=== PATIENT | male | born 1955 | race Two or more races ===

== ENCOUNTER → 2016-09-25 | Day surgery (SDC) | payer OTHER ==
--- NOTE | 2016-09-26 15:22 | PATH ---
Cytology Non-Gynecological Report Patient Name: ANKIT JIMENEZ [facility]. Rec. #: [id number] /Age/Gender: 1955 (Age: 61) / M Account: [id number] Location: RADIOLOGY Taken: 09/25/2016 Received: 09/25/2016 Reported: 09/26/2016 Physicians: Pancho Whalen M.D. Specimen(s) Received LEFT THYROID FNA Clinical History Left thyroid nodule, 1.42 x 0.78 x 1.25 cm Final Diagnosis THYROID GLAND, LEFT LOBE, US GUIDED FINE NEEDLE ASPIRATION BIOPSY: SATISFACTORY FOR EVALUATION. NO MALIGNANT CELLS IDENTIFIED. CONSISTENT WITH NODULAR HYPERPLASIA (BENIGN FOLLICULAR NODULE, [place] CATEGORY II, BENIGN), SEE COMMENT. Comment: The smears and the cell block from clusters of bland appearing follicular epithelial cells arranged in mixed macro- and microfollicules and flat sheets. Colloid is present. Electronically Signed Michael Varma M.D. Gross Description Received are four air dried smears, four smears in 95% alcohol, and 20 cc of bloody fluid in formalin. Four diff-quik stained slides, four Pap stained slides and one cell block are made.
== END | disposition home or self-care (01) ==
LOC: JRADIR 10:05
PROVIDERS: ATTEND Internal Medicine Endocrinology, Diabetes & Metabolism
PROC: 0GBG3ZX Excision of Left Thyroid Gland Lobe, Percutaneous Approach, Diagnostic (ICD-10-PCS; principal; 2016-09-25)
PROC: BG44ZZZ Ultrasonography of Thyroid Gland (ICD-10-PCS; 2016-09-25)
DX: E04.1 Nontoxic single thyroid nodule (principal)
CPT/HCPCS: 76942; 88173; 88305-TC

== ENCOUNTER → 2016-10-09 | Day surgery (SDC) | payer OTHER ==
--- NOTE | 2016-10-11 09:09 | PATH ---
Cytology Non-Gynecological Report Patient Name: ANKIT JIMENEZ [facility]. Rec. #: [id number] /Age/Gender: 1955 (Age: 61) / M Account: [id number] Location: RADIOLOGY Taken: 10/09/2016 Received: 10/09/2016 Reported: 10/11/2016 Physicians: Pancho Whalen M.D. Specimen(s) Received RIGHT THYROID FNA Clinical History Right thyroid nodule, 0.80 x 0.57 x 0.69 cm Final Diagnosis THYROID GLAND, RIGHT LOBE, US GUIDED FINE NEEDLE ASPIRATION BIOPSY: SATISFACTORY FOR EVALUATION DUE TO THE PRESENCE OF COLLOID; NO FOLLICULAR EPITHELIAL CELLS PRESENT. THIN COLLOID PRESENT (SEE COMMENT). Comment: The aspirate shows thin colloid only. 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 Imaging correlations and followup are suggested. Electronically Signed Michael Varma M.D. Gross Description Received are one air dried smears, one smears in 95% alcohol, and 50 cc of bloody fluid in formalin. One diff-quik stained slide, one Pap stained slide and one cell block are made. __
== END | disposition home or self-care (01) ==
LOC: JRADIR 08:55
PROVIDERS: ATTEND Internal Medicine Endocrinology, Diabetes & Metabolism
PROC: 0GBH3ZX Excision of Right Thyroid Gland Lobe, Percutaneous Approach, Diagnostic (ICD-10-PCS; principal; 2016-10-09)
PROC: BG44ZZZ Ultrasonography of Thyroid Gland (ICD-10-PCS; 2016-10-09)
DX: E04.1 Nontoxic single thyroid nodule (principal)
CPT/HCPCS: 76942; 88173; 88305-TC

== ENCOUNTER 2023-05-21 04:21 | Inpatient (IN) | payer OTHER ==
[2023-05-15 13:33] VITALS: BMI 27.4
[2023-05-21] MEDS: cefOXitin SODIUM 2 GM VIAL (RESTRICTED TO ID) IVPB ONE (14:10)
[2023-05-21] MEDS: BUPIVACAINE HCL/PF 0.25% (2.5MG/ML) 10 ML VIAL IJ ONE ×2 (15:28)
[2023-05-21] MEDS ORDERED: SUGAMMADEX SODIUM 200 MG/2 ML VIAL ONE (17:42)
[2023-05-21] MEDS ORDERED: ONDANSETRON 4 MG/2 ML VIAL IVPUSH PRN ×2 (18:00→18:37)
[2023-05-21] MEDS ORDERED: IBUPROFEN 800 MG/8 ML IJ IVPB PRN (18:37)
[2023-05-21] MEDS ORDERED: oxyCODONE HCL 5 MG TABLET PO PRN (18:37)
[2023-05-21] MEDS ORDERED: HYDROmorphone HCl 2 MG/ML VIAL IVPB PRN (18:37)
[2023-05-21] MEDS ORDERED: ACETAMINOPHEN INJECTION 100 ML IVPB ONE (20:57)
[2023-05-21] MEDS: LACTATED RINGERS SOLUTION 1,000 ML/1,000 ML INFUS.BAG IV SCH (21:00)
[2023-05-21] MEDS: ACETAMINOPHEN 1000 MG/100 ML BAG IVPB SCH (21:05)
[2023-05-21] MEDS ORDERED: ceFAZolin SODIUM 1 GM VIAL ONE (21:49)
[2023-05-21] MEDS: CEFAZOLIN 1 GM/D5W 1 GM/50 ML BAG IVPB SCH (21:53)
[2023-05-22] MEDS: CEFAZOLIN 1 GM in DEXTROSE 5%-WATER - 50 ML IVPB SCH (02:28)
[2023-05-22] MEDS: METOCLOPRAMIDE HCL INJECTION 10 MG/2 ML VIAL IVPUSH SCH ×2 (07:46→15:19)
[2023-05-22] MEDS: ONDANSETRON 4 MG/2 ML VIAL IVPUSH SCH (07:47)
[2023-05-22 09:42] LABS: HEMATOCRIT 34.3 % (35.4-49); HEMOGLOBIN 10.4 GM/dL (11.7-16.9); MCH 22.7 pg (25.7-33.7); MCHC 30.4 g/dl (32.0-35.9); MEAN CELL VOLUME 74.6 fl (80-96); MEAN PLT VOLUME 7.3 fl (7.5-11.1); PLATELET COUNT 280 10^3/uL (134-434); RBC 4.59 M/mm3 (4.00-5.60); RDW 18.5 % (11.9-15.9); WHITE BLOOD COUNT 11.6 K/mm3 (4.0-10.0)
[2023-05-22] MEDS: LISINOPRIL 20 MG TABLET PO SCH (09:57)
[2023-05-22] MEDS: PANTOPRAZOLE SODIUM 40 MG VIAL IVPUSH SCH (09:57)
[2023-05-22] MEDS: ENOXAPARIN NA (PORCINE) 40 MG/0.4 ML DISP.SYRIN SQ SCH (09:57)
[2023-05-22 10:02] LABS: CALCIUM 8.9 mg/dL (8.5-10.1)
[2023-05-22 10:03] LABS: BLOOD UREA NITROGEN 16.3 mg/dL (7-18)
[2023-05-22 10:06] LABS: CREATININE 1.2 mg/dL (0.55-1.3)
[2023-05-22] MEDS: IBUPROFEN 100 MG/5 ML UNIT DOSE CUPS PO SCH (10:45)
[2023-05-22] MEDS: ACETAMINOPHEN 650 MG/20.3 ML ORAL SOLUTION (CUPS) PO SCH (12:49)
[2023-05-22 18:23] VITALS: BP 148/86; PULSE 67; RESP 20; TEMP 97.5
== END 2023-05-22 18:55 | disposition home or self-care (01) | DRG 328 ==
LOC: J2C 04:21 → UNDOADMIN 04:21 → EDSTATUS 14:00 → UNDOADMIN 18:37 → J2C 18:37 → JERBED 19:33 → J2C 19:33 → JERBED 19:39 → J8W 19:39
PROVIDERS: ADMIT Surgery; ATTEND Surgery
PROC: 0BQT4ZZ Repair Diaphragm, Percutaneous Endoscopic Approach (ICD-10-PCS; principal; 2023-05-21 14:30)
DX: K44.9 Diaphragmatic hernia without obstruction or gangrene (principal)
CPT/HCPCS: 36415; 74220-TC-FY; 80048; 85027; 86850; 86900; 86901; 94760; J0131; J1644